=== PATIENT | male | born 1960 ===

== ENCOUNTER 2018-09-02 15:45 | Inpatient (IN) | payer OTHER ==
[2018-09-02] MEDS ORDERED: ACETAMINOPHEN 325 MG TAB PO PRN (20:27)
[2018-09-02] MEDS ORDERED: MAG HYDROX/AL HYDROX/SIMETH 30 ML UDCUP PO PRN (20:27)
[2018-09-02] MEDS ORDERED: MAGNESIUM HYDROXIDE 30 ML UDCUP PO PRN (20:27)
[2018-09-02] MEDS: QUEtiapine FUMARATE 200 MG TAB PO SCH (20:48)
[2018-09-02] MEDS ORDERED: DIVALPROEX ER 500 MG TAB PO SCH (21:00)
[2018-09-03] MEDS: DOXYCYCLINE HYCLATE 100 MG CAP/TAB PO SCH (08:33)
[2018-09-03] MEDS: TAMSULOSIN HCL 0.4 MG CAP PO SCH (08:33)
[2018-09-03] MEDS: MUPIROCIN 2% 22 GM OINT NS SCH ×2 (08:34→19:43)
--- NOTE | 2018-09-03 09:35 | GCON ---
[f rep st] CONSULTATION DATE OF CONSULTATION: 09/03/2018 REASON FOR CONSULTATION: I was asked by Dr. Anne to see Mr. España in regard to his medical issues . HISTORY OF PRESENT ILLNESS: This is a 58-year-old man who is admitted to [facility]. He saw one of his physicians who was concerned that he was manic, thus he was sent to the ED, placed on an M 1 hold, and transferred to [facility]. He lives in [place] and was transferred from [place]. He had stopped his lithium recently which may have been the trigger for this. He tells me that he has a chronic nasal/facial infection. He has seen multiple physicians for this i ncluding Infectious Disease. I reviewed his chart. He had a MRSA screen in [facility], which was negati ve in January of 2018. I believe this was a nasal swab. He has been treated with low-dose suppressive doses of Bactrim for about 6 months. He has been referred to see ENT, however, he has not done this. He reports that he an MRI in 2016, which showed significant sinus scar tissue. He has not had any real fevers though he does get hot and cold. He also takes mupirocin for this. He tells me that he has an enlarged prostate. He has been on Flomax as well as a second medicine whi ch he does not recall which did improve his symptoms. He stopped it because he does not like to take pharmaceuticals. He now has a weak stream. I note a renal ultrasound which was done June 13, which showed medical renal disease and a large postvoid residual. There is no report of hydrone phrosis. He also has chronic kidney disease. Based on labs that are sent from the [place], I believe his c reatinine is somewhere around 1.4 to 1.5. This is part of the reason he was taken off lithium. PAST MEDICAL/SURGICAL HISTORY: 1. Bipolar disorder. 2. Chronic facial/nasal infection. 3. BPH. 4. Hernia surgery. 5. Tonsillectomy when he was young. MEDICATIONS: Please see medication reconciliation. ALLERGIES: No known drug allergies. FAMILY HISTORY: Reviewed and noncontributory. 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 REVIEW OF SYSTEMS: A 10-point review of systems is conducted and is negative except per HPI. PHYSICAL EXAM: VITAL SIGNS: Blood pressure is 134/87, heart rate 94, respiration rate 16, saturatin g 96% on room air. Temperature 36.4. GENERAL: Mr. España is a pleasant man, who is pacing, appears somewhat manic on my interview. HEENT: Shows him to have mild noninfected appearing chronic scabbi ng from bilateral nasal cavity. There is no significant erythema. His nose appears to be slightly d eviated to the right. There is no purulence. CARDIOVASCULAR: Exam shows regular rate and rhythm. There are no murmurs, rubs, or gallops. PULMONARY: Lungs clear to auscultation bilaterally. ABDOME N: Soft, nontender, nondistended. SKIN: Shows no rash. : Exam shows no Lopez. Prostate exam w as deferred. NEUROLOGIC: Shows him to be alert and oriented x3. He has normal gait. PSYCHIATRIC: Exam shows him to have some pressured speech. LABS: Labs are reviewed from his emergency department visit in [place]. This shows sodium 142, pot assium 4.2, chloride 107, bicarb 20, glucose 123, BUN 18, creatinine is 1.50. LFTs are unremarkable. White count is 4.3, hemoglobin 15, platelets are 264. DATA: 1. Renal ultrasound reviewed as above. 2. I reviewed his outside records in [facility]. IMPRESSION AND PLAN: 1. Chronic facial/nasal/sinus infection: Does not appear to be acutely infected, though he has been placed on antibiotics for some time. He is concerned that Bactrim is no longer working. I think it is reasonable to put him on a low dose of doxycycline which I have ordered, 100 mg p.o. daily. It d oes not appear to be overtly infected at this point, although it might have been in the past. I thin k he really needs referral to ENT for consideration of sinuplasty. Otherwise, I would have him follo w up with his outpatient Infectious Disease doctors. 2. BPH: This is per report, he stopped taking Flomax due to concerns about side effects. Does not sound as though he was actually having side effects, however. Ultrasound did show a large postvoid r esidual. I think it is reasonable to start him on Flomax here. We could consider prostate cancer sc reening as an outpatient. I am not sure if this has been done. It does not seem appropriate while jennifer holbrook is in Behavioral Health. 3. Chronic kidney disease: He is approximately at his baseline creatinine of 1.5. Would avoid neph rotoxins in contrast. 4. I prescribed mupirocin for his dry-appearing nasal membranes. Thank you for involving Hospital Medicine in the care of Mr. España. We will sign off for now. Joe se re-consult if there are any additional issues. /[id number]/MODL
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
--- NOTE | 2018-09-03 18:14 | SOAPPROG ---
SOAP Progress Note Assessment/Plan: 09/03/18 14:36 pt seen and evaluated today with [employer] student present and started on Depakote 1500mg, continued Seroquel 400mg hs, continued on M-1 Refer to psychiatric admission assessment for details Objective: Vital Signs Temp Pulse Resp BP Pulse Ox 36.4 C 94 16 134/87 H 96 09/03/18 06:00 09/03/18 06:00 09/03/18 06:00 09/03/18 06:00 09/03/18 06:00 - Pending Discharge Pending Discharge Within 24 Hours: No Pending Discharge Within 48 Hours: No ICD10 Worksheet Patient Problems: Problems Problem Status Onset Bipolar I disorder, current or most recent episode manic, severe with mood- congruent psychotic features Acute
[2018-09-03] MEDS: DIVALPROEX ER 500 MG TAB PO SCH (21:06)
[2018-09-03] MEDS: QUEtiapine FUMARATE 200 MG TAB PO SCH (21:06)
[2018-09-04] MEDS: QUEtiapine FUMARATE 50 MG TAB PO PRN (00:52)
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
[2018-09-04] MEDS: LORazepam 0.5 MG TAB PO PRN (03:42)
[2018-09-04] MEDS: DOXYCYCLINE HYCLATE 100 MG CAP/TAB PO SCH (08:44)
[2018-09-04] MEDS: MUPIROCIN 2% 22 GM OINT NS SCH ×2 (08:44→20:39)
[2018-09-04] MEDS: TAMSULOSIN HCL 0.4 MG CAP PO SCH (08:44)
--- NOTE | 2018-09-04 13:58 | ASMTCMCOM ---
CM Note CM Note Notes: Pt. reports feeling "fantastic". Pt. stated his 's aunt, who was living with them, temporarily moved out. Pt. stated he has spoken to his about being his caregiver, stating she "can't drink on duty, can't argue with me", and no hitting meds out of his hand. Pt. stated he has been for 4 years. Pt. stated he slept "exactly like I wanted it", adding he "didn't sleep through the night". Pt. requested an extended release sleep medication, MD notified. Pt. stated he has had 12 caregivers throughout his life, 8 being hospital staff and 4 being friends or family. Pt. stated his "didn't understand she was a caregiver and not my ". Pt. stated he preferred that CC only speak to his once he is no longer manic and she can be the "final passing test" before going home on Wednesday or Wednesday. Pt. stated he would like to discharge on Wednesday, use the money he would save from not being in the hospital through Wednesday, and save that money for another inpatient stay if needed or for a stay in a regular hospital to help decrease his elevated heart rate. Pt. stated he is "trying to control my hear rate". Pt. stated he was manic yesterday when he stated he wants to fire his current psychiatrist, adding he is willing to continue seeing him. Pt. stated he is not planning on suing his MD "for a while". Pt. stated he is also "testing staff". Pt. denied SI, HI, AVH and paranoia. Pt. presents as alert, elevated, rambling, good eye contact, soft spoken at times, grandiose, lack insight and somewhat cooperative. Staff report pt. sleeping 3 hours last night and being medication compliant. CC to reach out to pt's outpatient psychiatrist on Wednesday for follow up appointment. Date Signed: 09/04/2018 01:57 PM Electronically Signed By:Natividad Long
--- NOTE | 2018-09-04 14:37 | SOAPPROG ---
SOAP Progress Note Assessment/Plan: Assessment: 09/03/18 14:36 pt seen and evaluated today refer to admission assessment for details 09/04/18 14:55 pt slept 3hrs. continues manic with incr energy, intrusive, irritable, talkative. peers have been annoyed by pt in group settings. kept telling staff he'd like d/c btwn 12:02-12:05pm tomorrow upon M-1 expiration met w/pt with [employer] student David also present MSE: cooperative, nml to sl incr psychom activity, nml vol speech but hyperverbal, not pressured but often needed to be interrupted for redirection. mood good, but anxious about being here when feeling he doesn't need to be, affect hypomanic, tp/tc- contradicting self at times, not consistently linear, expressed grandiose and entitled thoughts, including "I've always been more right than doctors, "I always prescribe for myself and my doctors agree, if the doctors prescribe, they get it wrong" and then referred to Kacy as being his refrigeration mechanic and her failure in this role caused him to end up here. Then talked glowingly about benefit from Depakote, and shortly thereafter complained that it make him stiff (got up and walked stiffly as example) when he took 3 in the past. Denied any AH/VH or any SI/HI. Did not appear responding to int stimuli. i/j- impaired by natividad. cognition seemed intact. Resisted recommendation to stay in hospital beyond Mon M-1 expiration. Argued that Tues was promised for d/c, and pt was reminded that Tues or better Wed would be earliest to have VPA level checked which does not equate to d/c. When his tachycardia was mentioned, pt became overly agreeable to stay in hospital "for THAT reason I'll stay as long as I need to get that figured out, even if I have to transfer to another hospital"- rather than remaining for natividad b/c he feels he's much better regarding natividad, as it has been worse and he feels he could sleep better at home, doesn't need all that depakote, slept fine one night prior to admission with just 2 depakote... Began telling jokes he states he made up. Denied any current physical c/o or medication s/e. IMP: BMD, currently manic PLAN: start vit D 1000U bid per pt request, reports on this as outpt cont Depakote 1500mg qhs, Seroquel 400mg HS cont ativan prn and seroquel 50mg tid prn M-1 exp tomorrow, reviewed options and rights with pt and pt was informed he would be placed on STC incr VS to Qshift. encourage fluids. f/u tachycardia. if remains elevated, consider EKG and d/w hospitalist collateral from outpt psychiatrist (of 4yrs) this week. Objective: Vital Signs Temp Pulse Resp BP Pulse Ox 36.4 C 118 H 18 105/81 H 96 09/04/18 06:00 09/04/18 06:00 09/04/18 06:00 09/04/18 06:00 09/04/18 06:00 - Time Spent With Patient Time Spent With Patient: 30min - Pending Discharge Pending Discharge Within 24 Hours: No Pending Discharge Within 48 Hours: No ICD10 Worksheet Patient Problems: Problems Problem Status Onset Bipolar I disorder, current or most recent episode manic, severe with mood- congruent psychotic features Acute
[2018-09-04] MEDS: CHOLECALCIFEROL VIT D3 1,000 UNITS TAB PO SCH (20:06)
[2018-09-04] MEDS: QUEtiapine FUMARATE 200 MG TAB PO SCH (20:06)
[2018-09-04] MEDS: DIVALPROEX ER 500 MG TAB PO SCH (20:06)
[2018-09-05] MEDS: QUEtiapine FUMARATE 50 MG TAB PO PRN (03:35)
[2018-09-05] MEDS: LORazepam 0.5 MG TAB PO PRN (03:35)
[2018-09-05] MEDS: DOXYCYCLINE HYCLATE 100 MG CAP/TAB PO SCH (08:12)
[2018-09-05] MEDS: TAMSULOSIN HCL 0.4 MG CAP PO SCH (08:12)
[2018-09-05] MEDS: CHOLECALCIFEROL VIT D3 1,000 UNITS TAB PO SCH ×2 (08:12→20:32)
[2018-09-05] MEDS: MUPIROCIN 2% 22 GM OINT NS SCH ×2 (08:13→20:40)
--- NOTE | 2018-09-05 14:27 | SOAPPROG ---
SOAP Progress Note Assessment/Plan: Assessment: Plan: 09/05/18 14:27 Mood: remains manic. Will CCM. Obtain EKG to check conduction times. Subjective: Pt seen, discussed with staff, chart reviewed. He is a 58 y/o CM with Bipolar I D/o. Outpatient of Dr. Garza. He remains manic, disorganized, pressured , intrusive. I watched him lie down on the floor and call for help this morning. RN did VS which showed mild orthostasis. Pt offered no c/o's except possible "dizziness" though jumped up from lying down and walked away at the end (despite repeated instruction to the contrary.) He is oppositional, argumentative. Angry at Dr. Garza for some reason, "I don't want to talk about. Don't say his name to me again." Compliant with meds. Objective: Vital Signs Temp Pulse Resp BP Pulse Ox 36.7 C 121 H 16 130/88 H 95 09/05/18 06:47 09/05/18 11:15 09/05/18 11:15 09/05/18 11:15 09/05/18 11:15 - Time Spent With Patient Time Spent With Patient: 25" ICD10 Worksheet Patient Problems: Problems Problem Status Onset Bipolar I disorder, current or most recent episode manic, severe with mood- congruent psychotic features Acute - ICD10 Problem Qualifiers (1) Bipolar I disorder, current or most recent episode manic, severe with mood- congruent psychotic features
[2018-09-05] MEDS: QUEtiapine FUMARATE 200 MG TAB PO SCH (20:32)
[2018-09-05] MEDS: DIVALPROEX ER 500 MG TAB PO SCH (20:32)
[2018-09-06] MEDS: LORazepam 0.5 MG TAB PO PRN ×2 (01:23→23:58)
[2018-09-06] MEDS: QUEtiapine FUMARATE 50 MG TAB PO PRN (01:24)
[2018-09-06] MEDS ORDERED: QUEtiapine FUMARATE 50 MG TAB PO PRN (09:19)
[2018-09-06] MEDS: DOXYCYCLINE HYCLATE 100 MG CAP/TAB PO SCH (09:24)
[2018-09-06] MEDS: CHOLECALCIFEROL VIT D3 1,000 UNITS TAB PO SCH ×2 (09:25→21:22)
[2018-09-06] MEDS: TAMSULOSIN HCL 0.4 MG CAP PO SCH (09:25)
[2018-09-06] MEDS: MUPIROCIN 2% 22 GM OINT NS SCH ×2 (09:25→22:32)
--- NOTE | 2018-09-06 11:35 | ASMTCMCOM ---
CM Note CM Note Notes: CC out-reached WOC (Kacy) at [phone]; no answer left a detailed VM with family meeting time and date as well as request for confirmation (Call Back.)* Date Signed: 09/06/2018 11:30 AM Electronically Signed By:Genaro Ibarra
--- NOTE | 2018-09-06 12:00 | ASMTBHDC ---
Notes Note: Notes: CC was able to confirm client's follow up appts: Follow up with: Dr. Amarjit Yoo [address] [place] [address] PH- FAX- Next Apt: September 08 (09/08/18) at 11am with Dr. Yoo. Additional Services: [facility] [address] [place] [address] Walk-in same day access: Hours: Wednesday 9 a.m.-5 p.m. Wednesday 8 a.m.-5 p.m. Wednesday 8 a.m.-5 p.m. 8 a.m.-5 p.m. Wednesday 8 a.m.-3 p.m. Date Signed: 09/06/2018 11:59 AM Electronically Signed By:Genaro Ibarra
--- NOTE | 2018-09-06 12:36 | SOAPPROG ---
[facility] Progress Note Assessment/Plan: Assessment: Plan: 09/05/18 14:27 Mood: remains manic. Will CCM. Obtain EKG to check conduction times. 09/06/18 12:37 Mood: Much improved since yesterday. CCM. Subjective: Pt seen, discussed with staff. Much more appropriate today. Able to sit with me and discuss his treatment. Later met with Treatment Team and reviewed plan again. He is much less irritable and able to interpret his situation and feelings appropriately. Less appropriate in his attitude toward his . He states several times that is her fault that he ended up in the hospital because she argued with him. 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 He bristles at this stating, "I don't need a languages and literature instructor." Ultimately agrees to a family meeting tomorrow to review pt' s clinical course and d/c plan. Objective: Vital Signs Temp Pulse Resp BP Pulse Ox 36.4 C 117 H 17 123/82 H 98 09/06/18 00:30 09/06/18 00:30 09/05/18 16:00 09/06/18 00:30 09/06/18 00:30 MSE: Calmer, coop. Affect is bright, smiling, approp; minimal irritability. Mood is "good, normal." TP linear. TC reveals no psychosis. Denies SI/HI/. ICD10 Worksheet Patient Problems: Problems Problem Status Onset Bipolar I disorder, current or most recent episode manic, severe with mood- congruent psychotic features Acute - ICD10 Problem Qualifiers (1) Bipolar I disorder, current or most recent episode manic, severe with mood- congruent psychotic features
[2018-09-06] MEDS: DIVALPROEX ER 500 MG TAB PO SCH (21:21)
[2018-09-06] MEDS: QUEtiapine FUMARATE 200 MG TAB PO SCH (21:22)
[2018-09-07 07:01] VITALS: BP 132/70
[2018-09-07] MEDS: TAMSULOSIN HCL 0.4 MG CAP PO SCH (09:34)
[2018-09-07] MEDS: CHOLECALCIFEROL VIT D3 1,000 UNITS TAB PO SCH (09:34)
[2018-09-07] MEDS: DOXYCYCLINE HYCLATE 100 MG CAP/TAB PO SCH (09:34)
[2018-09-07] MEDS: MUPIROCIN 2% 22 GM OINT NS SCH (09:35)
--- NOTE | 2018-09-07 16:41 | CPEKG ---
Test Reason : OPEN Blood Pressure : / mmHG Vent. Rate : 082 BPM Atrial Rate : 082 BPM P-R Int : 160 ms QRS Dur : 086 ms QT Int : 360 ms P-R-T Axes : 039 066 055 degrees QTc Int : 421 ms SINUS RHYTHM Confirmed by Sterling Adams ([id number] on 09/07/2018 4:40:44 PM Referred By: Hany Bennett Confirmed By:Sterling Adams
== END 2018-09-07 14:26 | disposition home or self-care (01) | DRG 885 ==
LOC: BBEH 18:20
PROVIDERS: ADMIT Registered Nurse; ATTEND Registered Nurse
DX: F31.10 Bipolar disorder, current episode manic without psychotic features, unspecified (principal); T43.506A Underdosing of unspecified antipsychotics and neuroleptics, initial encounter; N40.0 Benign prostatic hyperplasia without lower urinary tract symptoms; N18.9 Chronic kidney disease, unspecified; J32.9 Chronic sinusitis, unspecified